=== PATIENT | female | born 1955 | race Caucasian/White ===

== ENCOUNTER 2022-10-14 14:14 | Emergency (ER) | payer MEDICARE ==
[~2022-10-14] VITALS: Ht 157.5 cm; Wt 45.4 kg
[~2022-10-14 14:14] MED LIST: VENL150C2 PO
--- NOTE | 2022-10-14 14:23 | NUR ---
Dr Dickinson at the bedside for MSE.
--- NOTE | 2022-10-14 14:34 | NUR ---
Patient does not wish to proceed with medical care recommended by Dr. Rubin). Patient given information related to possible complications, up to and including , which could occur as a result of leaving the hospital at this time. Patient verbalizes understanding of risks involved due to leaving against medical advice. Patient has signed AMA form.
--- NOTE | 2022-10-14 14:35 | NUR ---
Pt walked out of Er accompained by daughter.
[2022-10-14 14:36] VITALS: BP 120/76
== END 2022-10-14 14:40 | disposition left against medical advice (07) ==
LOC: ER 14:14
DX: H54.61 Unqualified visual loss, right eye, normal vision left eye (principal); F17.210 Nicotine dependence, cigarettes, uncomplicated; Z79.899 Other long term (current) drug therapy
CPT/HCPCS: A4663